=== PATIENT | male | born 1960 | race Caucasian/White ===

== ENCOUNTER 2020-07-10 11:25 | Emergency (ER) | payer BC ==
[~2020-07-10] VITALS: Ht 177.8 cm; Wt 93.2 kg
[2020-07-10 11:30] VITALS: TEMP 97.5
[2020-07-10] MEDS ORDERED: CEPHALEXIN500 M1 PO (13:34)
[2020-07-10 13:52] VITALS: BP 133/92; PULSE 57
== END 2020-07-10 14:23 | disposition home or self-care (01) ==
LOC: COL.ER 11:25
DX: S62.521A Displaced fracture of distal phalanx of right thumb, initial encounter for closed fracture (principal); Z23 Encounter for immunization
CPT/HCPCS: J0690